=== PATIENT | female | born 1955 | race Caucasian/White ===

== ENCOUNTER → 2019-09-29 | Outpatient (CLI) | payer BC ==
--- NOTE | 2019-09-29 22:23 | CONS ---
CONSULTATION DATE OF SERVICE: 09/29/2019 63-year-old lady has been evaluated in Sleep Center for obstructive sleep apnea- hypopnea syndrome. HISTORY OF PRESENT ILLNESS/SLEEP-WAKE EVALUATION: Patient has history of obstructive sleep apnea for about 10 years. Since that time, she is on treatment with CPAP equipment every night for the whole night. Last CPAP unit she received about 3 years ago. SLEEP SCHEDULE: Sleep schedule from around 10 to 11 pm until 6:30 or 7:30 a.m. on working days and until about 8:00 am on weekends. FALLING ASLEEP: No problems with falling asleep, although she has a TV set in bedroom. DURING SLEEP: She usually sleeps on the back and side positions. She does not snore while using CPAP equipment. She may wake up from sleep up to 3 times. No episodes of nocturia and she quickly falling back to sleep. She usually take naps around 12:00 pm. [place] Sleepiness Scale is in normal range for no history of hypnagogic hallucinations, sleep paralysis or cataplexy. PAST MEDICAL HISTORY: Positive for hypertension, hypothyroidism, hyperlipidemia, acid reflux, coronary artery disease, squamous cell CA, benign tumors, tumor in the breast. PAST SURGICAL HISTORY: Surgery for removing benign tumor from the breast squamous cell carcinoma of the face. MEDICATIONS: Hydroxychloroquine, levothyroxine, losartan, amlodipine, , omeprazole. SOCIAL HISTORY: Positive for smoking in the past; quit 34 years ago. Alcohol consumption occasional. FAMILY HISTORY: Heart problems, hyperlipidemia, acid reflux, diabetes, thyroid problems. Please note, I checked the patient CPAP unit. CPAP pressure is 12 cm of water patient using equipment every night. No significant leak from the mask. She is using a medium size 7+ full size oral full full-face mask. Apnea-hypopnea index reading from the machine is 0.9, which is in normal range. REVIEW OF SYSTEMS: Sometimes awakenings from sleep, but no significant excessive daytime sleepiness. No chest pain. No shortness of breath. No headaches. PHYSICAL EXAM: lady without distress. BP 166/58 on the right arm, 173/76 on the left arm, HR 59, R 16 height 5 and 7 and have weight 364.4, temperature 97.8, oxygen saturation at room air 95% oropharynx extremely low position of soft palate, Mallampati IV, wide. Neck is 17 inches in circumference. HEENT: JAYDEN, RADHIKAMI, evaluation of oropharynx showed tongue protrudes midline. NECK: Supple, no JVD. Thyroid is not palpable. LUNGS: Clear to percussion and to auscultation. Good air exchange. No wheezing or rhonchi. HEART: S1, S2 regular. No murmurs, gallops, or rubs. ABDOMEN: Soft and nontender. Bowel sounds are present. No organomegaly appreciated. EXTREMITIES: No clubbing or cyanosis. CABLE SYSTEMS INSTALLER: Awake, alert, and oriented X3. Cranial nerves 2 to 7 intact. There is no fasciculation or atrophy. noted. No focal deficits observed. IMPRESSION: 1. History of obstructive sleep apnea for 10 years. Patient continued to use CPAP equipment every night for the whole night BT fitting from treatment. Normal apnea- hypopnea index reading from the CPAP unit. CPAP pressure is 12 cm of water. The patient is using off fullface Simplus medium size mask. 2. Low position of soft palate, a wide neck. 3. Obesity, BMI 56.1. 4. Hypertension. 5. Rheumatoid arthritis. 6. Hypothyroidism. 7. Coronary artery disease by results of cardiac cath. 8. Hyperlipidemia. 9. Acid reflux. 10.Status post removing benign tumor from the breast. 11.Status post surgical treatment of squamous cell carcinoma of the face. PLAN: 1. Patient should continue to use CPAP equipment every night for the whole night. I believe the present pressure is clinically and by results of reading from the machine is sufficient for correction of respiratory abnormalities. 2. Losing weight. 3. Sleep hygiene with regular time in bed for 7-1/2 to 8 hours. 4. No driving if feeling any sleepiness. Patient is aware about civil and criminal liability for unsafe driving. 5. We will maintain all necessary prescriptions for CPAP supplies including mask, heated tube filters. 6. We will get results of previous sleep studies. Thank you very much for allowing me to participate in management of your patient. Sincerely, Chester Peters MD, PhD, FAASM Diplomat of [place] [employer]ties [place] Board of [employer] Medicine Welt Rander of [facility] [place] MMODL / ROSANNAN: [id number] /
== END | disposition home or self-care (01) ==
LOC: SLEEP 14:05
PROVIDERS: ATTEND Internal Medicine
DX: G47.33 Obstructive sleep apnea (adult) (pediatric) (principal); E66.9 Obesity, unspecified; M06.9 Rheumatoid arthritis, unspecified; E03.9 Hypothyroidism, unspecified; E78.5 Hyperlipidemia, unspecified; K21.9 Gastro-esophageal reflux disease without esophagitis; I25.10 Atherosclerotic heart disease of native coronary artery without angina pectoris; I10 Essential (primary) hypertension; Z98.890 Other specified postprocedural states; Z85.828 Personal history of other malignant neoplasm of skin; Z99.89 Dependence on other enabling machines and devices; Z68.43 Body mass index [BMI] 50.0-59.9, adult; Z79.899 Other long term (current) drug therapy; Z79.890 Hormone replacement therapy
CPT/HCPCS: 99211

== ENCOUNTER → 2020-04-12 | Outpatient (CLI) | payer BC ==
--- NOTE | 2020-04-12 11:33 | SFUN ---
SLEEP CENTER FOLLOW UP NOTE This is a 64-year-old lady who has been followed in Sleep Center for treatment of obstructive sleep apnea-hypopnea syndrome. The patient successfully continues to use her CPAP equipment every night. No snoring with the machine. [place] Sleepiness Scale today is 4, which is normal. I checked her CPAP unit. CPAP pressure is 12 cm of water, usage 30/30 nights more than 4 hours. Average usage 8.06 hours. Leak 2%, which is normal. Apnea-hypopnea index reading 1.0. Great numbers. MEDICATIONS: Hydrochloroquine, losartan, amlodipine, atorvastatin, omeprazole, hydrochlorothiazide, fluticasone. REVIEW OF SYSTEMS: The patient does not offer any physical complaints. The patient denies any rashes or other skin problems. The patient does not report any joint pain, swelling, or restriction of movement. The patient denies any headaches, any visual problems, hearing loss, sore throat. Denies any pain on breathing, shortness of breath, cough, wheezing, hemoptysis, night sweats. The patient also denies chest pain or distress, palpitations, dyspnea, orthopnea, edema, history of hypertension, history of myocardial infarction. Denies nausea, vomiting, diarrhea, hematemesis, and melena. Denies hemorrhoids or ulcers. Denies any genitourinary problems. Does not report any history of seizures. PHYSICAL EXAMINATION: lady without distress, BP 133/58, HR 56, RR 16, height 5 feet 7 1/2 inches, weight 365, BMI 56.1. Temperature 98.0, oxygen saturation at room air 99%. Neck is 17 inches in circumference. Head: Normocephalic, atraumatic. Neck: Supple, thyroid gland is not enlarged, no JVP is noted, no lymphadenopathy noted. ENT: No foci of infection. Eyes: LEANDRO, external eye movements are normal, conjunctivae are pink. Lungs: Clear to auscultation bilaterally. Heart: S1, S2 can be heard, no gallops, rubs, or murmurs. Abdomen: Soft, nontender, no organomegaly, bowel sounds are heard in all four quadrants. Obese. Extremities: No cyanosis, clubbing, or edema, peripheral pulses are palpable. Cranial Nerves: II to XII are intact. DRIVEWAY ATTENDANT: There are no gross sensory or motor deficits, DTRS 2+ bilaterally. Musculoskeletal: Muscle strength is symmetrical. IMPRESSION: 1. Obstructive sleep apnea-hypopnea syndrome. Patient demonstrated 100% compliance with treatment, benefitting from treatment. 2. Obesity. 3. Hypertension. 4. Rheumatoid arthritis. 5. Hypothyroidism. 6. Coronary artery disease by results of cardiac cath. 7. Acid reflux. 8. Hyperlipidemia. 9. Status post removing benign tumor from the breast. 10.Status post surgical treatment of squamous cell carcinoma of the face. PLAN: 1. Patient will continue to use PAP equipment every night for the whole night. 2. Sleep hygiene with regular time in bed for at least 7-1/2 to 8 hours. 3. Precautions related to driving. No driving if feeling sleepiness. 4. I will maintain all necessary prescription for PAP supplies including mask, tube, filters. 5. Watching weight. 6. No driving if feeling sleepiness. 7. Follow-up visit in 6 months or earlier if patient has any problems. MMODL / IJN: [id number] /
== END | disposition home or self-care (01) ==
LOC: SLEEP 09:44
PROVIDERS: ATTEND Internal Medicine
DX: G47.33 Obstructive sleep apnea (adult) (pediatric) (principal); Z99.89 Dependence on other enabling machines and devices; E66.9 Obesity, unspecified; I10 Essential (primary) hypertension; M06.9 Rheumatoid arthritis, unspecified; E03.9 Hypothyroidism, unspecified; I25.10 Atherosclerotic heart disease of native coronary artery without angina pectoris; K21.9 Gastro-esophageal reflux disease without esophagitis; E78.5 Hyperlipidemia, unspecified; Z85.89 Personal history of malignant neoplasm of other organs and systems

== ENCOUNTER → 2020-04-12 | Outpatient (CLI) | payer BC ==
--- NOTE | 2020-04-26 15:23 | MM ---
Reason for exam: screening (asymptomatic). Last mammogram was performed 1 year and 3 months ago. History: Patient is postmenopausal, history of other cancer, and had first child at age 35. Benign excisional biopsy of the right breast, 1975. Physical Findings: A clinical breast exam by your physician is recommended on an annual basis and results should be correlated with mammographic findings. MG Screening Mammo w CAD Bilateral CC, MLO, and XCCL view(s) were taken. Prior study comparison: December 27, 2018, mammogram, performed at [facility]. December 24, 2017, mammogram, performed at [facility]. December 18, 2016, mammogram. The breast tissue is almost entirely fat. There is no discrete abnormality. Focal asymmetry left lower inner quadrant. ASSESSMENT: Benign, BI-RAD 2 RECOMMENDATION: Routine screening mammogram of both breasts in 1 year.
== END | disposition home or self-care (01) ==
LOC: RADMAMWWP 13:21
PROVIDERS: ATTEND Obstetrics & Gynecology
DX: Z12.31 Encounter for screening mammogram for malignant neoplasm of breast (principal)
CPT/HCPCS: 77067

== ENCOUNTER → 2020-08-09 | Outpatient (CLI) | payer BC ==
--- NOTE | 2020-08-09 19:16 | SFUN ---
SLEEP CENTER FOLLOW UP NOTE DATE OF SERVICE: 08/09/2020 64-year-old lady has been followed in the Sleep Center for treatment of obstructive sleep apnea-hypopnea syndrome. Patient has successfully continued to use her CPAP equipment every night, but she wakes up in the morning hours according to her . According to patient, the machine started to be noisy and whistles, that could be the reason why she wakes up. [place] Sleepiness Scale today is 5. I checked patient's CPAP unit. Usage is 30/30 nights for more than 4 hours. Leak is 0%. Apnea-hypopnea index is only 1.0. CPAP pressure is 12 cm of water. [place] Sleepiness Scale is 5. MEDICATIONS: Hydroxychloroquine 200 mg twice a day, levothyroxine 112 mcg once a day, losartan 50 mg once a day, amlodipine 25 mg once a day, atorvastatin 40 mg once a day. Omeprazole 20 mg on p.r.n. basis, hydrochlorothiazide 25 mg on p.r.n. basis. PHYSICAL EXAM: Patient in no distress, BP 158/69, HR 55, RR 16, height 5 feet 8 inches, weight 374.4 pounds. Patient increased her weight on 9 pounds comparing to the previous visit. BMI 56.8, temperature 97.6, oxygen saturation at room air 99%. HEENT: PERRLA, EOMI. Evaluation of oropharynx showed tongue protrudes midline. Low position of soft palate. Mallampati 4. NECK: Supple, no JVD. Thyroid is not palpable. LUNGS: Clear to percussion and to auscultation. Good air exchange. No wheezing or rhonchi. HEART: S1, S2 regular. No murmurs, gallops, or rubs. ABDOMEN: Obese. Soft and nontender. Bowel sounds are present. No organomegaly appreciated. EXTREMITIES: No clubbing or cyanosis. PUBLIC POLICY MANAGER: Awake, alert, and oriented X3. Cranial nerves 2 to 7 intact. There is no fasciculation or atrophy. noted. No focal deficits observed. IMPRESSION: 1. Obstructive sleep apnea-hypopnea syndrome. The patient demonstrated 100% compliance with treatment, benefitting from treatment. CPAP unit is whistling and noisy. 2. Patient sometimes wake up in the airplane gastank liner assembler while she is on CPAP. 3. Obesity. 4. Hypertension. 5. History of rheumatoid arthritis. 6. Hypothyroidism. 7. Coronary artery disease. 8. Hyperlipidemia. 9. Acid reflux. 10.Status post surgical treatment of squamous cell CA of the face. 11.Status post benign tumor removed from the breast. PLAN: 1. Prescription for new CPAP unit with automatic regimen, range of the pressure 8-15 cm of water. 2. Polysomnography for evaluation of patient's breathing during sleep. 3. CPAP/BiPAP titration if sleep study confirms obstructive sleep apnea-hypopnea syndrome. 4. Preferable position during sleep on the side. 5. No driving if patient feels any sleepiness. 6. I will see patient for follow up visit to explain results of testing and following plan. 7. Followup visit in one month after patient will receive new CPAP unit. Thank you very much for allowing me to participate in management of your patient. Sincerely, Chester Peters MD, PhD, FAASM Diplomat of [employer] Specialties [employer] of Internal Medicine Solutions Sales Consultant of [facility] [place] MMODL / IJN: [id number] /
== END | disposition home or self-care (01) ==
LOC: SLEEP 11:19
PROVIDERS: ATTEND Internal Medicine
DX: G47.33 Obstructive sleep apnea (adult) (pediatric) (principal); I10 Essential (primary) hypertension; E03.9 Hypothyroidism, unspecified; E78.5 Hyperlipidemia, unspecified; K21.9 Gastro-esophageal reflux disease without esophagitis; I25.10 Atherosclerotic heart disease of native coronary artery without angina pectoris; Z87.39 Personal history of other diseases of the musculoskeletal system and connective tissue; Z79.899 Other long term (current) drug therapy; Z79.890 Hormone replacement therapy

== ENCOUNTER → 2020-11-01 | Outpatient (CLI) | payer BC ==
--- NOTE | 2020-11-01 21:53 | SFUN ---
SLEEP CENTER FOLLOW UP NOTE DATE OF SERVICE: 11/01/2020 This is a 64-year-old lady who has been followed in Sleep Center for treatment of obstructive sleep apnea-hypopnea syndrome. Patient recently received a new CPAP unit. She started to use it and she is able to use equipment every night for the whole night. She likes her new machine and likes her mask. No snoring while using her equipment. [place] Sleepiness Scale is 5, which is normal. I checked the reading from her machine. The patient is using it 100% of the time with average usage 8 hours and 40 minutes per night. Machine is on automatic regimen. Pressure ranges from 8 to 15 with average 95% of pressure 13.0, leak 95% 16.4. Apnea- hypopnea index is 2.5, which is normal. We discussed with the patient in detail adjustments to the humidifier and adjustments of temperature in the tube. MEDICATIONS: Hydroxychloroquine, losartan, amlodipine, atorvastatin, omeprazole, hydrochlorothiazide, fluticasone. PHYSICAL EXAMINATION: GENERAL: A pleasant patient in no distress. VITAL SIGNS: BP 159/69, HR 61, RR 18, weight 367.4, temperature 97.6, oxygen saturation at room air 98%. HEENT: PERRLA, EOMI. Evaluation of oropharynx showed tongue protrudes midline. Low position of soft palate. Mallampati IV. NECK: Supple. No JVD. Thyroid is not palpable. LUNGS: Clear to percussion and to auscultation. Good air exchange. No wheezing or rhonchi. HEART: S1, S2 regular. No murmurs, gallops or rubs. ABDOMEN: Obese. EXTREMITIES: No clubbing or cyanosis. EARTH BORING MACHINE OPERATOR: Awake, alert, and oriented X3. Cranial nerves 2 to 7 intact. There is no fasciculation or atrophy. noted. No focal deficits observed. IMPRESSION: 1. Obstructive sleep apnea-hypopnea syndrome. Patient demonstrated 100% compliance with treatment, benefitting from treatment. 2. Obesity. 3. Hypertension. 4. Rheumatoid arthritis. 5. Hypothyroidism. 6. Coronary artery disease. 7. Hyperlipidemia. 8. Acid reflux. 9. Status post surgical treatment of squamous cell carcinoma from the face. 10.Status post benign tumor removed from breast. PLAN: 1. Patient will continue to use PAP equipment every night for the whole night. 2. Sleep hygiene with regular time in bed for at least 7-1/2 to 8 hours. 3. Precautions related to driving. No driving if feeling sleepiness. 4. I will maintain all necessary prescription for PAP supplies including mask, tube, filters. 5. Watching weight. 6. No driving if feeling sleepiness. 7. Follow-up visit in 6 months or earlier if patient has any problems. Thank you very much for allowing me to participate in the management of your patient. Sincerely, Chester Peters MD, PhD, FAASM Diplomat of [place] [employer] Specialties [place] Board of Internal Medicine Weight Loss Sales Consultant of [facility] [place] MMODL / IJN: [id number] /
== END | disposition home or self-care (01) ==
LOC: SLEEP 13:36
PROVIDERS: ATTEND Internal Medicine
DX: G47.33 Obstructive sleep apnea (adult) (pediatric) (principal); E66.9 Obesity, unspecified; I10 Essential (primary) hypertension; M06.9 Rheumatoid arthritis, unspecified; E03.9 Hypothyroidism, unspecified; I25.10 Atherosclerotic heart disease of native coronary artery without angina pectoris; E78.5 Hyperlipidemia, unspecified; K21.9 Gastro-esophageal reflux disease without esophagitis; Z85.9 Personal history of malignant neoplasm, unspecified; Z98.890 Other specified postprocedural states; Z79.899 Other long term (current) drug therapy

== ENCOUNTER → 2021-09-06 | Outpatient (CLI) | payer BC ==
--- NOTE | 2021-09-09 14:06 | MM ---
Reason for exam: screening (asymptomatic). Last mammogram was performed 1 year and 5 months ago. History: Patient is postmenopausal, history of other cancer, and had first child at age 35. Benign excisional biopsy of the right breast, 1975. Physical Findings: A clinical breast exam by your physician is recommended on an annual basis and results should be correlated with mammographic findings. MG 3D Screening Mammo W/Cad Bilateral CC, MLO, and XCCL view(s) were taken. Prior study comparison: April 12, 2020, bilateral MG screening mammo w CAD. December 27, 2018, mammogram, performed at [facility]. There are scattered fibroglandular densities. No significant changes when compared with prior studies. ASSESSMENT: Benign, BI-RAD 2 RECOMMENDATION: Routine screening mammogram of both breasts in 1 year.
== END | disposition home or self-care (01) ==
LOC: RADMAMWWP 09:52
PROVIDERS: ATTEND Internal Medicine Geriatric Medicine
DX: Z12.31 Encounter for screening mammogram for malignant neoplasm of breast (principal); Z78.0 Asymptomatic menopausal state
CPT/HCPCS: 77063; 77067

== ENCOUNTER → 2021-11-29 | Outpatient (CLI) | payer BC ==
--- NOTE | 2021-12-11 08:11 | ECHOF ---
Referral Reason:R06.02 Shortness of breath MEASUREMENTS -------- HEIGHT: 172.7 cm WEIGHT: 170.1 kg BP: 182/78 RVIDd: 3.1 cm (< 3.3) IVSd: 1.1 cm (0.6 - 1.1) LVIDd: 3.9 cm (3.9 - 5.3) LVPWd: 1.3 cm (0.6 - 1.1) IVSs: 1.8 cm LVIDs: 2.8 cm LVPWs: 1.6 cm LA Diam: 3.1 cm (2.7 - 3.8) Ao Diam: 3.3 cm (2.0 - 3.7) AV Cusp: 2.0 cm (1.5 - 2.6) MV EXCURSION: 11.432 mm (> 18.000) MV EF SLOPE: 37 mm/s (70 - 150) EPSS: 0.8 cm MV E Gagan: 0.81 m/s MV DecT: 434 ms MV A Gagan: 0.96 m/s MV E/A Ratio: 0.85 FINDINGS -------- Sinus rhythm. This was a technically adequate study. The left ventricular size is normal. There is mild concentric left ventricular hypertrophy. Overa ll left ventricular systolic function is normal with, an EF between 55 - 60 %. The right ventricle is normal in size. The left atrium is normal in size. The right atrium is normal in size. There is mild aortic valve sclerosis. The mitral valve is normal. The tricuspid valve appears structurally normal. Unable to estimate RVSP due to inadequate TR jet s pectral doppler profile. The pulmonic valve was not well visualized. The aortic root size is normal. IVC Not well visulized. There is no pericardial effusion. CONCLUSIONS -------- 1. The left ventricular size is normal. 2. There is mild concentric left ventricular hypertrophy. 3. Overall left ventricular systolic function is normal with, an EF between 55 - 60 %. 4. There is mild aortic valve sclerosis. 5. There is no pericardial effusion. ESTIMATOR LUMBER: Shaila Goldberg, [facility]
== END | disposition home or self-care (01) ==
LOC: RADECHMAIN 11:50
PROVIDERS: ATTEND Internal Medicine Geriatric Medicine
DX: I35.8 Other nonrheumatic aortic valve disorders (principal); I51.7 Cardiomegaly
CPT/HCPCS: 93306

== ENCOUNTER → 2022-02-27 | Outpatient (CLI) | payer BC ==
--- NOTE | 2022-02-27 14:53 | P.PN ---
Subjective DATE: 02/27/2022 FOLLOW UP VISIT. Patient with obstructive sleep apnea hypopnea syndrome return to sleep center for follow-up visit. Patient is using PAP equipment every night for the whole night, getting PAP supplies in time. The patient does not have significant problems with the mask, PAP unit and humidification. [place] sleepiness scale is 5. I checked information from PAP unit. PAP unit pressure 8 to15, average 13.1 cm H2O. Usage is 90 % for more then 4 hours, average 8.2 hours per night. Leak is 8 l/m, which is in acceptable range. Apnea Hypopnea Index is 2.2, which is normal. MEDICATIONS:1. Losartan 2. Hydroxychloroquine 3. Amlodipine 4. Atorvastatin 5. Levothyroxine 6. Hydrochlorothiazide During physical exam: GENERAL: A pleasant patient without any distress. VITAL SIGNS: BP 183/77, HR 66, RR 16, weight 38 1.4, temperature 96.4, height 5 foot 8 inches, oxygen saturation at room air 94, BMI 58. HEENT: PERRLA, EOMI.low position of soft palate, Mallapati for. NECK: Supple. No JVD. LUNGS: Clear to percussion and to auscultation. Good air exchange. No wheezing or rhonchi. HEART: S1, S2 regular. ABDOMEN: Soft and nontender. Obese EXTREMITIES: No clubbing or cyanosis. FISHERIES INSPECTOR: Awake, alert, and oriented x3. No focal deficit. Impressions: 1. Obstructive sleep apnea-hypopnea syndrome. Patient demonstrated great compliance with treatment, benefiting from treatment. 2. Obesity patient increase weight on 15 pounds. 3. Hypertension. 4. Rheumatoid arthritis. 5. Hypothyroidism. 6. Coronary artery disease. 7. Hyperlipidemia. 8. Acid reflux. 9. Status post surgical treatment of squamous cell CA from the face. 10 status post benign tumor removed from the breast Plan: 1. Continue using PAP equipment every night for the whole night. 2. To change air filter at least 1-2 times per month. 3. PAP unit should stay lower then position of the head. 4. Advised patient to remove all remaining water from humidifier canister daily and make it dry after each usage. Refill canister with fresh distilled water before each usage. 5. Sleep hygiene with regular time in bed for at least 8 hours. 6. Precautions related to driving. No driving if feel any sleepiness. 7. I will maintain prescription for PAP supplies including mask, tube, filters. 8. Follow up visit in 6 months or earlier if patient has any problems. 9. Aggressive losing weight. Thank you very much for allowing me to participate in the management of your patient. Chester Peters MD, PhD, FAASM. Diplomat of [place] Board of Sleep Medicine, Sleep Medicine Board by [place] [employer] Internal Medicine City Magistrate of [facility] [place]
== END ==
LOC: SLEEP 13:56
PROVIDERS: ATTEND Internal Medicine
DX: G47.33 Obstructive sleep apnea (adult) (pediatric) (principal); E66.9 Obesity, unspecified; I10 Essential (primary) hypertension; E03.9 Hypothyroidism, unspecified; E78.5 Hyperlipidemia, unspecified; M06.9 Rheumatoid arthritis, unspecified; I25.10 Atherosclerotic heart disease of native coronary artery without angina pectoris; K21.9 Gastro-esophageal reflux disease without esophagitis; Z68.43 Body mass index [BMI] 50.0-59.9, adult

== ENCOUNTER → 2022-09-08 | Outpatient (CLI) | payer BC ==
--- NOTE | 2022-09-09 09:54 | MM ---
Reason for Exam: Screening (asymptomatic). Last screening mammogram was performed 12 month(s) ago. Patient History: Menarche at age 13. First Full-Term at age 35. Late child-bearing (after 30). Postmenopausal. Other cancer. 1975, Benign Excisional Biopsy on the right side. Risk Values: [place]ina 5 year model risk: 2.9%. NCI Lifetime model risk: 11.3%. Prior Study Comparison: 12/27/2018 Screening Mammogram, [facility]. 04/12/2020 Bilateral Screening Mammogram, [facility]. 09/06/2021 Bilateral Screening Mammogram, [facility]. Tissue Density: There are scattered fibroglandular densities. Findings: Analyzed By CAD. . Stable 8 mm oval circumscribed mass in the left breast middle depth outer aspect. Benign-appearing left axillary lymph node is seen. There is no suspicious new group of microcalcifications or new suspicious mass in either breast. Overall Assessment: Benign, BI-RAD 2 Management: Screening Mammogram of both breasts in 1 year. A clinical breast exam by your physician is recommended on an annual basis and results should be correlated with mammographic findings. Electronically signed and approved by: Isaak Young M.D.
== END | disposition home or self-care (01) ==
LOC: RADMAMWWP 13:21
PROVIDERS: ATTEND Obstetrics & Gynecology
DX: Z12.31 Encounter for screening mammogram for malignant neoplasm of breast (principal); Z78.0 Asymptomatic menopausal state; Z98.890 Other specified postprocedural states
CPT/HCPCS: 77063; 77067

== ENCOUNTER → 2023-02-05 | Outpatient (CLI) | payer MEDICARE ==
--- NOTE | 2023-02-05 13:33 | P.PN ---
Subjective DATE: 02/05/2023 FOLLOW UP VISIT. Patient with obstructive sleep apnea hypopnea syndrome return to sleep center for follow-up visit. Information from previous visit have been reviewed. Patient is using PAP equipment every night for the whole night, getting PAP supplies in time. The patient does not have significant problems with the mask, PAP unit and humidification. [place] sleepiness scale is 4. I checked information from PAP unit. PAP unit pressure 8-15, average 13.7 cm H2O. Usage is 98 % for more then 4 hours, average 8.6 hours per night. Leak is 22 l/m, which is in acceptable range. Apnea Hypopnea Index is 2.6, which is normal. MEDICATIONS:1. Levothyroxine 112 g once a day 2. Losartan 50 mg once a day 3. Amlodipine 25 mg once a day 4. Atorvastatin 40 mg once a day 5. Ecotrin 6. Hydroxychloroquine 200 mg twice a day During physical exam: GENERAL: A pleasant patient without any distress. VITAL SIGNS: BP 169/59, HR 63, RR 20 , weight 395, temperature 96.8, oxygen saturation at room air 96 % . HEENT: PERRLA, EOMI.low position of soft palate, Mallapati 4 . NECK: Supple. No JVD. LUNGS: Clear to percussion and to auscultation. Good air exchange. No wheezing or rhonchi. HEART: S1, S2 regular. ABDOMEN: Soft and nontender. Obese EXTREMITIES: No clubbing or cyanosis. MOBILE SOLUTIONS ARCHITECT: Awake, alert, and oriented x3. No focal deficit. Impressions: 1. Obstructive sleep apnea-hypopnea syndrome. Patient demonstrated great compliance with treatment, benefiting from treatment. 2. Obesity, body mass index is 22.0, patient increased her weight on 14 pounds comparing with previous visit. 3. Rheumatoid arthritis. 4. Hypertension. 5. Hypothyroidism. 6. Coronary artery disease. 7. Hyperlipidemia. 8. Acid reflux. 9. 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 10. Status post benign tumor removed from the breast. 11.[]. 12.[]. Plan: 1. Continue using PAP equipment every night for the whole night. 2. To change air filter at least 1-2 times per month. 3. PAP unit should stay lower then position of the head. 4. Advised patient to remove all remaining water from humidifier canister daily and make it dry after each usage. Refill canister with fresh distilled water before each usage. 5. Sleep hygiene with regular time in bed for at least 8 hours. 6. Precautions related to driving. No driving if feel any sleepiness. 7. I will maintain prescription for PAP supplies including mask, tube, filters. 8. Watching and losing weight. 9. Follow up visit in 6 months or earlier if patient has any problems. Thank you very much for allowing me to participate in the management of your patient. Chester Peters MD, PhD, FAASM. Diplomat of [place] [employer] Sleep Medicine, Sleep Medicine Board by [place] [employer] Internal Medicine [employer] Truck Driver of [facility] [place]
== END | disposition home or self-care (01) ==
LOC: SLEEP 13:10
PROVIDERS: ATTEND Internal Medicine
DX: G47.33 Obstructive sleep apnea (adult) (pediatric) (principal); E66.9 Obesity, unspecified; E03.9 Hypothyroidism, unspecified; E78.5 Hyperlipidemia, unspecified; I10 Essential (primary) hypertension; I25.10 Atherosclerotic heart disease of native coronary artery without angina pectoris; K21.9 Gastro-esophageal reflux disease without esophagitis; M06.9 Rheumatoid arthritis, unspecified; Z98.890 Other specified postprocedural states; Z99.89 Dependence on other enabling machines and devices; Z68.22 Body mass index [BMI] 22.0-22.9, adult
CPT/HCPCS: 99212

== ENCOUNTER → 2024-02-11 | Outpatient (CLI) | payer MEDICARE | END | disposition home or self-care (01) | LOC: RADMAMWWP 11:55 | PROVIDERS: ATTEND Obstetrics & Gynecology | DX: Z53.9 Procedure and treatment not carried out, unspecified reason (principal) ==

== ENCOUNTER → 2024-02-11 | Outpatient (CLI) | payer MEDICARE ==
--- NOTE | 2024-02-11 11:54 | P.PROGSL ---
Subjective DATE: 02/11/2024 FOLLOW UP VISIT. Patient with obstructive sleep apnea hypopnea syndrome return to sleep center for follow-up visit. Information from previous visit have been reviewed. Patient is using PAP equipment every night for the whole night, getting PAP supplies in time. The patient does not have significant problems with the mask, PAP unit and humidification. Howard sleepiness scale is 8, which is normal range. I checked information from PAP unit. PAP unit pressure 8-15, average 12.5 cm H2O. Usage is 100% for more then 4 hours, average 9.1 hours per night. Leak is increased to 38 l/m. Apnea Hypopnea Index is 3.2, which is normal. MEDICATIONS: See below During physical exam: GENERAL: A pleasant patient without any distress. VITAL SIGNS: Please see below, weight 396.2 pounds, BMI 60.2. HEENT: PERRLA, EOMI.low position of soft palate, Mallapati 4 . NECK: Supple. No JVD. LUNGS: Clear to percussion and to auscultation. Good air exchange. No wheezing or rhonchi. HEART: S1, S2 regular. ABDOMEN: Soft and nontender. Obese EXTREMITIES: No clubbing or cyanosis. W[employer] MECH[employer]IC: Awake, alert, and oriented x3. No focal deficit. Impressions: 1. Obstructive sleep apnea-hypopnea syndrome. Patient demonstrated great compliance with treatment, benefiting from treatment. 2. Obesity, BMI 60.2. 3. Hypothyroidism. 4. Hypertension. 5. Rheumatoid arthritis. 6. Coronary artery disease. 7. Hyperlipidemia. 8. Acid reflux. 9. Status post benign tumor removed from the breast. 10. 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 Plan: 1. Continue using PAP equipment every night for the whole night. 2. To change air filter at least 1-2 times per month. 3. PAP unit should stay lower then position of the head. 4. Advised patient to remove all remaining water from humidifier canister daily and make it dry after each usage. Refill canister with fresh distilled water before each usage. 5. Sleep hygiene with regular time in bed for at least 8 hours. 6. Precautions related to driving. No driving if feel any sleepiness. 7. I will maintain prescription for PAP supplies including mask, tube, filters. 8. Follow up visit in 6 months or earlier if patient has any problems. 9. Watching and losing weight. Thank you very much for allowing me to participate in the management of your patient. Chester Peters MD, PhD, FAASM. Diplomat of [employer], Sleep Medicine Board by [employer] [facility] [place] Objective - Vital Signs Vital Signs: Vital Signs Temp 97.8 F 02/11/24 11:18 Pulse 64 02/11/24 11:18 Resp 20 02/11/24 11:18 BP 172/79 02/11/24 11:18 Pulse Ox 96 02/11/24 11:18 FiO2 Intake & Output 02/10/24 02/11/24 02/11/24 18:59 06:59 18:59 Weight 179.679 kg Home Medications: Home Medications Medication Instructions Recorded Confirmed Type Atorvastatin [Lipitor] 40 mg PO HS 02/11/24 02/11/24 History Fluticasone Nasal [place] [Flonase 50 mcg 02/11/24 History Nasal Mantoloking] Hydroxychloroquine Sulfate 400 mg PO DAILY 02/11/24 02/11/24 History Levothyroxine Sodium [Synthroid] 112 mcg PO DAILY 02/11/24 02/11/24 History Losartan [Cozaar] 100 mg 02/11/24 History Omeprazole 20 mg PO PRN 02/11/24 History amLODIPine [Norvasc] 2.5 mg PO DAILY 02/11/24 02/11/24 History
[2024-02-11 12:09] VITALS: BP 172/79; PULSE 64; RESP 20; TEMP 97.8
== END ==
LOC: 3 N SLEEP 11:03
PROVIDERS: ATTEND Internal Medicine
DX: G47.33 Obstructive sleep apnea (adult) (pediatric) (principal); E66.9 Obesity, unspecified; Z68.44 Body mass index [BMI] 60.0-69.9, adult; E03.9 Hypothyroidism, unspecified; I10 Essential (primary) hypertension; M06.9 Rheumatoid arthritis, unspecified; I25.10 Atherosclerotic heart disease of native coronary artery without angina pectoris; E78.5 Hyperlipidemia, unspecified; K21.9 Gastro-esophageal reflux disease without esophagitis; Z98.890 Other specified postprocedural states; Z85.828 Personal history of other malignant neoplasm of skin; Z99.89 Dependence on other enabling machines and devices; Z88.1 Allergy status to other antibiotic agents; Z88.8 Allergy status to other drugs, medicaments and biological substances; Z91.09 Other allergy status, other than to drugs and biological substances
CPT/HCPCS: 99212